=== PATIENT | male | born 2000 | race Caucasian/White ===

== ENCOUNTER → 2023-06-24 | Outpatient (REF) | payer OTHER ==
[2023-06-24 09:36] LABS: SEMEN APPEARANCE OPAQUE (OPAQUE); SEMEN VISCOSITY LIQUID (LIQUID); SEMEN VOLUME 2.5 ml (2.0-5.0)
[2023-06-24 09:37] LABS: WBC CONCENTRATION <=1 M/ml (<=1 M/ml)
[2023-06-24 09:38] LABS: SPERM CONCENTRATION 20.9 M/ml (>=15.0)
== END ==
LOC: M LAB REF 09:06
PROVIDERS: ATTEND Physician Assistant
DX: Z30.8 Encounter for other contraceptive management (principal)

== ENCOUNTER → 2023-11-25 | Outpatient (REF) | payer OTHER ==
[2023-11-25 13:38] LABS: SEMEN APPEARANCE OPAQUE (OPAQUE); SEMEN VISCOSITY LIQUID (LIQUID); SEMEN VOLUME 1.8 ml (2.0-5.0); SEMEN pH 8.5 (7.0-8.0)
[2023-11-25 13:39] LABS: SPERM CONCENTRATION 73.3 M/ml (>=15.0); WBC CONCENTRATION <=1 M/ml (<=1 M/ml)
== END ==
LOC: M LAB REF 13:31
PROVIDERS: ATTEND Urology
DX: Z31.69 Encounter for other general counseling and advice on procreation (principal)

== ENCOUNTER → 2025-02-01 | Outpatient (REF) | payer OTHER ==
[~2025-02-01] MED LIST: CLOM50TA31 PO
== END ==
LOC: M LAB REF 12:45
PROVIDERS: ATTEND Urology
DX: Z53.9 Procedure and treatment not carried out, unspecified reason (principal)

== ENCOUNTER 2025-02-02 16:11 | Emergency (ER) | payer OTHER ==
[~2025-02-02] VITALS: Ht 177.8 cm; Wt 83.0 kg
[2025-02-02 16:13] VITALS: BP 131/77; TEMP 97.3; O2SAT 99
[2025-02-02] MEDS ORDERED: CLOM50TA31 PO (16:17)
== END 2025-02-02 16:49 | disposition left against medical advice (07) ==
LOC: M ED 16:11
DX: Z53.21 Procedure and treatment not carried out due to patient leaving prior to being seen by health care provider (principal)

== ENCOUNTER → 2025-02-05 | Outpatient (REF) | payer OTHER ==
[2025-02-05 13:04] LABS: SEMEN APPEARANCE OPAQUE (OPAQUE); SEMEN VISCOSITY LIQUID (LIQUID); SEMEN VOLUME 3.6 ml (2.0-5.0); WBC CONCENTRATION <=1 M/ml (<=1 M/ml)
[2025-02-05 13:05] LABS: SPERM CONCENTRATION 16.6 M/ml (>=15.0); TOTAL PROGRESSIVE SPERM 3.3 M/Ejac.
== END ==
LOC: M LAB REF 12:44
PROVIDERS: ATTEND Urology
DX: Z31.69 Encounter for other general counseling and advice on procreation (principal)